=== PATIENT | male | born 1950 | race Caucasian/White ===

== ENCOUNTER 2018-02-19 19:13 | Outpatient (REF) | payer MEDICARE, SELFPAY ==
[2018-02-19 19:29] LABS: HCT 41.7 % (40.0-50.0); HGB 14.8 g/dL (13.5-17.5); Mean Corp. HGB Concentration 35.5 g/dL (32.0-36.0); Mean Corpuscular Hemoglobin 32.5 pg (27.0-33.0); Mean Corpuscular Volume 91.6 fL (80-95); Mean Platelet Volume 10.2 fL (8.0-11.0); Platelet Count 183 x1000/uL (130-400); RBC 4.55 m/cumm (4.50-6.00); RBC Distribution Width 12.2 % (11.8-14.1); White Blood Cell Count 6.21 k/cumm (4.4-10.8)
[2018-02-19 20:13] LABS: ALT 25 U/L (12-78); AST 28 U/L (15-37); Albumin 4.3 g/dL (3.4-5.0); Alkaline Phosphatase 79 U/L (46-116); Anion Gap 8.8 mmol/L (3-11); BUN 23 mg/dL (7-18); Bilirubin, Total 0.8 mg/dL (0.2-1.0); CO2 28.2 mmol/L (21.0-32.0); Calcium 9.3 mg/dL (8.5-10.1); Chloride 102 mmol/L (98-107); Glucose 93 mg/dL (70-100); Potassium 4.4 mmol/L (3.5-5.1); Sodium 139 mmol/L (136-145); Total Protein 7.3 g/dL (6.4-8.2); Vitamin B12 442 pg/mL (193-986)
== END 2018-02-19 19:33 ==
LOC: NCHCN 19:13
PROVIDERS: PCP Internal Medicine; Visit Provider Internal Medicine
DX: G47.33 Obstructive sleep apnea (adult) (pediatric) (principal); L30.9 Dermatitis, unspecified; G31.84 Mild cognitive impairment of uncertain or unknown etiology; N40.0 Benign prostatic hyperplasia without lower urinary tract symptoms
CPT/HCPCS: 80053; 85027; 82607; 84443

== ENCOUNTER 2019-02-17 12:38 | Outpatient (REF) | payer MEDICARE, OTHER, SELFPAY ==
[2019-02-17 19:39] LABS: HCT 41.5 % (40.0-50.0); HGB 14.1 g/dL (13.5-17.5); Mean Corpuscular Hemoglobin 31.4 pg (27.0-33.0); Mean Corpuscular Volume 92.4 fL (80-95); Mean Platelet Volume 9.7 fL (8.0-11.0); Platelet Count 219 x1000/uL (130-400); RBC 4.49 m/cumm (4.50-6.00); RBC Distribution Width 12.1 % (11.8-14.1); White Blood Cell Count 6.45 k/cumm (4.4-10.8)
[2019-02-17 19:58] LABS: ALT 16 U/L (16-63); AST 26 U/L (15-37); Albumin 3.9 g/dL (3.4-5.0); Alkaline Phosphatase 68 U/L (46-116); Anion Gap 6.8 mmol/L (3-11); BUN 28 mg/dL (7-18); Bilirubin, Total 0.5 mg/dL (0.2-1.0); CO2 29.2 mmol/L (21.0-32.0); CREATININE 0.91 mg/dL (0.70-1.30); Calcium 9.2 mg/dL (8.5-10.1); Chloride 105 mmol/L (98-107); Glucose 84 mg/dL (74-106); Potassium 4.6 mmol/L (3.5-5.1); Sodium 141 mmol/L (136-145); TSH 1.84 uIU/mL (0.36-3.74); Total Protein 7.1 g/dL (6.4-8.2); Vitamin B12 433 pg/mL (193-986)
== END 2019-02-17 12:58 ==
LOC: NCHCN 12:38
PROVIDERS: PCP Internal Medicine; Visit Provider Internal Medicine
DX: G31.84 Mild cognitive impairment of uncertain or unknown etiology (principal); N40.0 Benign prostatic hyperplasia without lower urinary tract symptoms; I10 Essential (primary) hypertension
CPT/HCPCS: 80053; 85027; 82607; 84443

== ENCOUNTER 2019-05-20 16:32 | Outpatient (REF) | payer MEDICARE, OTHER, SELFPAY | END 2019-05-20 16:52 | LOC: NCHCN 16:32 | PROVIDERS: PCP Internal Medicine; Visit Provider Internal Medicine | DX: N40.0 Benign prostatic hyperplasia without lower urinary tract symptoms (principal); N43.3 Hydrocele, unspecified | CPT/HCPCS: 87086 ==

== ENCOUNTER 2019-07-21 19:12 | Outpatient (REF) | payer MEDICARE, OTHER, SELFPAY ==
[2019-07-21 20:20] LABS: C-Reactive Protein 0.25 mg/dL (0.0-0.3); Creatine Kinase 120 U/L (39-308)
[2019-07-21 21:07] LABS: ESR 16 mm/hr (1-20)
== END 2019-07-21 19:32 ==
LOC: NCHCN 19:12
PROVIDERS: PCP Internal Medicine; Visit Provider Internal Medicine
DX: M12.812 Other specific arthropathies, not elsewhere classified, left shoulder (principal); M62.81 Muscle weakness (generalized); M20.40 Other hammer toe(s) (acquired), unspecified foot
CPT/HCPCS: 82550; 85652; 86140

== ENCOUNTER 2019-12-22 11:40 | Outpatient (REF) | payer MEDICARE, OTHER, SELFPAY ==
[2019-12-22 19:16] LABS: Anion Gap 7.2 mmol/L (3-11); BUN 21 mg/dL (7-18); CO2 26.8 mmol/L (21.0-32.0); CREATININE 0.83 mg/dL (0.70-1.30); Calcium 9.1 mg/dL (8.5-10.1); Chloride 106 mmol/L (98-107); Glucose 90 mg/dL (74-106); Potassium 4.6 mmol/L (3.5-5.1); Sodium 140 mmol/L (136-145)
== END 2019-12-22 12:00 ==
LOC: NCHCN 11:40
PROVIDERS: PCP Internal Medicine; Visit Provider Internal Medicine
DX: R00.2 Palpitations (principal); I10 Essential (primary) hypertension; E66.9 Obesity, unspecified
CPT/HCPCS: 80048

== ENCOUNTER → 2020-09-13 13:55 | Outpatient (BNVA) | payer MEDICARE, OTHER, SELFPAY | PROVIDERS: PCP Internal Medicine; Referring Provider Internal Medicine; Visit Provider Internal Medicine Cardiovascular Disease | DX: I48.0 Paroxysmal atrial fibrillation (principal); I35.8 Other nonrheumatic aortic valve disorders; I10 Essential (primary) hypertension; G47.33 Obstructive sleep apnea (adult) (pediatric); E66.9 Obesity, unspecified | CPT/HCPCS: 93005; 99204 ==

== ENCOUNTER → 2020-10-30 13:37 | Outpatient (BNVA) | payer MEDICARE, OTHER, SELFPAY | PROVIDERS: PCP Internal Medicine; Referring Provider Internal Medicine; Visit Provider Internal Medicine Cardiovascular Disease | DX: I48.0 Paroxysmal atrial fibrillation (principal); G47.33 Obstructive sleep apnea (adult) (pediatric); I35.8 Other nonrheumatic aortic valve disorders; I10 Essential (primary) hypertension | CPT/HCPCS: 99214; 99213 ==

== ENCOUNTER 2021-08-01 18:40 | Outpatient (REF) | payer MEDICARE, OTHER, SELFPAY ==
[2021-08-01 19:08] LABS: HCT 41.3 % (40.0-50.0); HGB 14.2 g/dL (13.5-17.5); MCH 31.3 pg (27.0-33.0); MCHC 34.4 % (32.0-36.0); MCV 91 fL (80-95); MPV 9.9 fL (8.0-11.0); Platelet Count 204 10^3/uL (130-400); RBC 4.53 10^6/uL (4.36-5.78); RDW 12.1 % (11.8-14.1); RDW-SD 40.4 fL; WBC 5.58 10^3/uL (4.4-10.8)
[2021-08-01 19:20] LABS: ALT 22 U/L (16-63); AST 18 U/L (15-37); Albumin 3.9 g/dL (3.4-5.0); Alkaline Phosphatase 88 U/L (46-116); Bilirubin, Direct 0.1 mg/dL (0.0-0.2); Bilirubin, Total 0.4 mg/dL (0.2-1.0); Lipase 140 U/L (73-393); Total Protein 7.1 g/dL (6.4-8.2)
== END 2021-08-01 18:41 | disposition home or self-care (01) ==
LOC: NCHCN 18:40
PROVIDERS: PCP Internal Medicine; Visit Provider Internal Medicine
DX: R10.13 Epigastric pain (principal)
CPT/HCPCS: 80076; 83690; 85027

== ENCOUNTER 2021-09-17 18:38 | Outpatient (REF) | payer MEDICARE, OTHER, SELFPAY ==
[2021-09-17 20:18] LABS: Bilirubin Negative (Negative); Blood Negative (Negative); Clarity Clear (Clear); Glucose Negative (Negative); Ketones Negative (Negative); Leukocyte Esterase Negative (Negative); Nitrite Negative (Negative); Specific Gravity >= 1.030 (1.005-1.025); Urobilinogen 0.2 EU/dL (Up TO 0.2); pH 5.5 (5-8)
[2021-09-17 20:30] LABS: COMMENT (LAB VIEW ONLY) 126.91 mg/dL; Microalb ug/mg Crea 5.6 ug/mg Cr
== END 2021-09-17 18:39 | disposition home or self-care (01) ==
LOC: NCHCN 18:38
PROVIDERS: PCP Internal Medicine; Visit Provider Internal Medicine
DX: R35.0 Frequency of micturition (principal); N40.0 Benign prostatic hyperplasia without lower urinary tract symptoms
CPT/HCPCS: 81003; 82043; 82570

== ENCOUNTER 2022-10-09 18:07 | Outpatient (REF) | payer MEDICARE, OTHER, SELFPAY ==
[2022-10-09 19:05] LABS: Anion Gap 8.2 mmol/L (3-11); BUN 27 mg/dL (7-18); CO2 25.8 mmol/L (21.0-32.0); CREATININE 1.2 mg/dL (0.70-1.30); Calcium 9.5 mg/dL (8.5-10.1); Chloride 106 mmol/L (98-107); Estimated GFR 64.65 (mL/min/1.73m2); Glucose 102 mg/dL (74-106); Potassium 4.9 mmol/L (3.5-5.1); Sodium 140 mmol/L (136-145)
== END 2022-10-09 18:08 | disposition home or self-care (01) ==
LOC: NCHCN 18:07
PROVIDERS: PCP Internal Medicine; Visit Provider Nurse Practitioner Family
DX: I10 Essential (primary) hypertension (principal); I83.018 Varicose veins of right lower extremity with ulcer other part of lower leg
CPT/HCPCS: 80048; 87077; 87070; 87186; 87205

== ENCOUNTER 2022-12-22 16:13 | Outpatient (REF) | payer MEDICARE, OTHER, SELFPAY ==
[2022-12-22 19:59] LABS: HGB 13.4 g/dL (13.5-17.5); MCH 31.1 pg (27.0-33.0); MCHC 34.4 % (32.0-36.0); MCV 91 fL (80-95); MPV 9.8 fL (8.0-11.0); Platelet Count 237 10^3/uL (130-400); RBC 4.31 10^6/uL (4.36-5.78); RDW-SD 39.8 fL; WBC 5.92 10^3/uL (4.4-10.8)
== END 2022-12-22 16:14 | disposition home or self-care (01) ==
LOC: NCHCN 16:13
PROVIDERS: PCP Internal Medicine; Visit Provider Nurse Practitioner Family
DX: R50.9 Fever, unspecified (principal)
CPT/HCPCS: 85027

== ENCOUNTER 2023-03-26 13:34 | Outpatient (CLI) | payer MEDICARE, OTHER, SELFPAY ==
--- NOTE | 2023-03-26 08:30 | DI.RAD_ITS ---
Exam(s) XR HIP RT COMPLETE AP PELVIS EXAM: XR HIP RT COMPLETE AP PELVIS CLINICAL HISTORY: right hip pain. TECHNIQUE: 2D digital imaging was performed of the right hip. Two images were obtained. AP pelvis a nd lateral right hip views were obtained. COMPARISON: No exams were available for comparison FINDINGS: BONES: No acute fracture is present. No bony destructive lesion is seen. JOINTS: No dislocation present. There is loss of the superior joint space in the right hip. Subchond ral cysts are seen in both the right superior acetabulum and the superior aspect of the right femoral head. Mild subchondral sclerosis is also seen in the right hip. The left hip is well maintained. SOFT TISSUE: Dystrophic calcification is seen adjacent to the right hip. IMPRESSION: Marked degenerative changes of the right hip. DATA REPOSITORY: RADIATION DOSE DELIVERED:
== END 2023-03-26 13:35 | disposition home or self-care (01) ==
LOC: DIORS 13:35
PROVIDERS: PCP Internal Medicine; Referring Provider Internal Medicine; Visit Provider Student in an Organized Health Care Education/Training Program
DX: M16.11 Unilateral primary osteoarthritis, right hip (principal)
CPT/HCPCS: 99214; 73502

== ENCOUNTER 2023-04-20 04:51 | Outpatient (CLI) | payer MEDICARE, OTHER, SELFPAY ==
[2023-04-20 12:04] LABS: HCT 40.8 % (40.0-50.0); MCH 30.7 pg (27.0-33.0); MCHC 34.3 % (32.0-36.0); MCV 90 fL (80-95); MPV 9.1 fL (8.0-11.0); Platelet Count 205 10^3/uL (130-400); RBC 4.56 10^6/uL (4.36-5.78); RDW 11.9 % (11.8-14.1); RDW-SD 39.2 fL; WBC 7.01 10^3/uL (4.4-10.8)
[2023-04-20 12:30] LABS: Anion Gap 11.4 mmol/L (3-11); BUN 25 mg/dL (7-18); CO2 25.6 mmol/L (21.0-32.0); Chloride 104 mmol/L (98-107); Estimated GFR 79.97 (mL/min/1.73m2); Glucose 95 mg/dL (74-106); Potassium 4.4 mmol/L (3.5-5.1); Sodium 141 mmol/L (136-145)
== END 2023-04-20 04:52 | disposition home or self-care (01) ==
LOC: LBO 04:51
PROVIDERS: PCP Internal Medicine; Visit Provider Student in an Organized Health Care Education/Training Program
DX: Z01.818 Encounter for other preprocedural examination
CPT/HCPCS: 36415; 80048; 85027

== ENCOUNTER 2023-05-05 06:09 | Day surgery (SDC) | payer MEDICARE, OTHER, SELFPAY ==
[2023-05-05] VITALS (9 sets, daily range): BP systolic 103–142; BP diastolic 54–78; PULSE 56–68; RESP 12–17; TEMP 36.4–36.5; O2SAT 96–98; BMI 33.5
--- NOTE | 2023-05-05 06:19 | W.ANESPRE ---
General Info Date of Service Date Performed: 05/05/23 Height: 5 ft 8 in Weight: 100.244 kg Body Mass Index (BMI): 33.5 Surgical Procedure: Operation Date: 05/05/23 07:50 Proposed Procedure Side Surgeon p Hip Total Hip Anterior Right Harrison Neal MD Meds Allergies and Home Medications Allergies Allergy/AdvReac Type Severity Reaction Status Date / Time lisinopril AdvReac Intermediate cough Verified 05/05/23 06:26 Home Medication Medication Instructions Recorded cholecalciferol (vitamin D3) 125 125 mcg PO DAILY 10/31/22 mcg (5,000 unit) tablet vit C 250 mg-vit E 90 mg-zinc 40 2 tab PO DAILY 10/31/22 mg-copper 1 sb-iapfpy-nnonit capsule (PreserVision AREDS-2) apixaban 5 mg tablet (Eliquis) 5 mg PO BID 02/17/23 cetirizine 10 mg tablet 10 mg PO DAILY PRN 03/26/23 furosemide 20 mg tablet (Lasix) 10 mg PO DAILY 03/26/23 mirabegron 50 mg tablet,extended 50 mg PO DAILY 03/26/23 release 24 hr (Myrbetriq) acetaminophen 500 mg tablet 1,000 mg (2 x 500 mg) PO TID #90 05/05/23 tabs celecoxib 200 mg capsule 200 mg PO BID #60 caps 05/05/23 dexamethasone 4 mg tablet 4 mg PO DAILY #2 tabs 05/05/23 diltiazem HCl 180 mg capsule,24 180 mg PO DAILY 05/05/23 hr,extended release (Tiadylt ER) oxycodone 5 mg tablet 5 mg PO Q4H PRN pain #20 tabs 05/05/23 pantoprazole 40 mg tablet,delayed 40 mg PO DAILY #30 tabs 05/05/23 release Current Visit Medications: Current Medications Generic Name Dose Route Start Last Admin Trade Name Freq PRN Reason Stop Dose Admin Acetaminophen 1,000 mg 05/05/23 06:00 Acetaminophen 500 Mg Tab PO 06/04/23 05:59 PREOP DUNCAN Celecoxib 400 mg 05/05/23 06:00 Celecoxib 200 Mg Cap PO 06/04/23 05:59 PREOP DUNCAN Tranexamic Acid 1,000 mg/ 60 mls @ 360 mls/hr 05/05/23 06:00 Sodium Chloride IV 06/04/23 05:59 PREOP DUNCAN Ringer's Solution 1,000 mls @ 80 mls/hr 05/05/23 06:00 IV 06/03/23 23:59 INFUSION DUNCAN Cefazolin Sodium/Dextrose 2 gm in 50 mls @ 100 mls/hr 05/05/23 06:00 Ancef Duplex IVPB 05/05/23 16:00 PREOP DUNCAN IV Miscellaneous Supplies 1 each 05/05/23 06:00 Iv Access IV 06/03/23 23:59 DIRECTED DUNCAN Sodium Chloride 0 ml 05/05/23 06:00 Normal Saline Flush 10 Ml Syr IV 06/03/23 23:59 PRN PRN Sodium Chloride 0 ml 05/05/23 06:00 Normal Saline 10 Ml Vial IJ 06/03/23 23:59 DIRECTED PRN Sterile Water 0 ml 05/05/23 06:00 Water,Injection,Sterile 10 Ml Vial IJ 06/03/23 23:59 DIRECTED PRN PFSH Active Problems Active Problems: Problem Status Onset Code Degenerative joint disease of right hip M16.11 Obstructive sleep apnea (adult) (pediatric) G47.33 GRACIELA (obstructive sleep apnea) G47.33 HTN, goal to be determined I10 Obesity, unspecified E66.9 Gastro-esophageal reflux disease without esophagitis K21.9 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 I51.7 Benign prostatic hyperplasia without lower urinary tract symptoms N40.0 Mild cognitive impairment, so stated G31.84 Chronic depressive disorder F32.9 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 Venous insufficiency (chronic) (peripheral) I87.2 Paroxysmal atrial fibrillation I48.0 Medical History Medical History (Updated 05/01/23 @ 11:58 by Charly Ohara) A-fib Adhesive capsulitis Esophageal reflux Colonic diverticulum PVC (premature ventricular contraction) LVH (left ventricular hypertrophy) Hand dermatitis BPH (benign prostatic hyperplasia) Urinary frequency Hydrocele, right Hammer toe Onychomycosis Irregular heart beats Arthritis of knee, right Actinic keratosis Epigastric abdominal pain Inguinal hernia Cholelithiases Acute nontraumatic kidney injury Venous stasis ulcer Right ear pain Surgical History Surgical History (Updated 05/01/23 @ 11:58 by Charly Ohara) H/O cardiac radiofrequency ablation 04/15/21 H/O vasectomy History of open reduction and internal fixation (ORIF) procedure s/p 2 ORIF of patella s/p right TKA Tobacco Smoking/Tobacco Use Status: Never Alcohol Alcohol Intake: current Alcohol intake frequency: holidays/special occasions only Substance Use Substance use: Never Substance use type: does not use Vital Signs and Lab Results Lab Results Blood Type / Crossmatch: No Data to Display Complete Blood Count: White Blood Count 7.01 10^3/uL (4.4-10.8) 04/20/23 11:55 Red Blood Count 4.56 10^6/uL (4.36-5.78) 04/20/23 11:55 Hemoglobin 14.0 g/dL (13.5-17.5) 04/20/23 11:55 Hematocrit 40.8 % (40.0-50.0) 04/20/23 11:55 Platelet Count 205 10^3/uL (130-400) 04/20/23 11:55 Complete Metabolic Panel: Sodium 141 mmol/L (136-145) 04/20/23 11:55 Potassium 4.4 mmol/L (3.5-5.1) 04/20/23 11:55 Chloride 104 mmol/L (98-107) 04/20/23 11:55 Carbon Dioxide 25.6 mmol/L (21.0-32.0) 04/20/23 11:55 BUN 25 mg/dL (7-18) H 04/20/23 11:55 Creatinine 1.0 mg/dL (0.70-1.30) 04/20/23 11:55 Est GFR (CKD-EPI 2020) 79.97 (mL/min/1.73m2) 04/20/23 11:55 Calcium 10.0 mg/dL (8.5-10.1) 04/20/23 11:55 Glucose 95 mg/dL (74-106) 04/20/23 11:55 Liver Function Panel: No Data to Display Coagulation Panel: No Data to Display Cardiac Panel: No Data to Display Arterial Blood Gas: No Data to Display Venous Blood Gas: No Data to Display Pancreas Panel: No Data to Display Thyroid Panel: No Data to Display Infectious Disease: No Data to Display Blood Cultures: No Data to Display Toxicology Panel: No Data to Display Imaging and Studies Imaging and Studies Study information below may be from another EMR and interpreted by another provider. Please see original notes in EMR for more complete details. EKG Summary: 2020 Conclusion Sinus rhythm...normal P axis, V-rate 50- 99 Left anterior fascicular block...axis(240,-40), init forces inf Consider anterior infarct...Q >30mS in V2-V5 Baseline wander in lead(s) V1,V3,V4,V5,V6 Other Study Summary:: echo 2020 EF 65%, no significant valve disease, no aortic stenosis Anesthesia Assessment and Plan Anesthesia History Personal History: No History of Anesthesia Complications Family History: No Family History of Anesthesia Complications Exercise Tolerance Exercise Tolerance: Metabolic Equivalents>4 Pertinent Negatives Pertinent Negatives: No Symptoms of GERD, No Major Cardiovascular Symptoms or Complaints, No Major Pulmonary Symptoms or Complaints and No History of CVA/TIA Cardiac & Pulmonary Exam Cardiac Exam: Normal S1/S2 Heart Sounds Pulmonary Exam: Clear Bilateral Breath Sounds Implantable Cardiac Device Does patient have a Pacemaker or an ICD?: No Airway Exam Known Difficult Airway: No Mallampati Class: 3 Mouth Opening: Normal (> 3cm) Thyromental Distance: Greater than 3 cm Neck Range of Motion: Full ROM Neck Circumference: Normal Teeth Condition: Loose or Chipped (one chipped right side, nothing loose) ASA Classification ASA Score: ASA 2 Emergency Case?: No NPO Status NPO Status: NPO Clears >2 hours, Solids >8 hours Anesthesia Plan Resuscitation Status: Full Code Anesthesia Technique: Spinal Anesthesia Airway Planned: Natural Airway Monitors Used: Standard Monitors
[2023-05-05] MEDS: Acetaminophen 500 MG TAB 1000 MG PO (07:06)
[2023-05-05] MEDS: Lactated Ringers 1,000 ML 80 ML IV (07:06)
[2023-05-05] MEDS: Celecoxib 200 MG CAP 400 MG PO (07:06)
--- NOTE | 2023-05-05 07:10 | W.PM.DSUDISC ---
Date of service: 05/05/23 Time of Service: 07:10 Discharge Plan Disposition Patient Disposition: Home Condition: Good Discharge Details Reason For Visit: R THR Attending Provider: Harrison Neal Primary Care Provider: Glen Jason Home Meds and New Rx's Prescriptions: New celecoxib 200 mg capsule 200 mg PO BID Qty: 60 0RF acetaminophen 500 mg tablet 1,000 mg PO TID Qty: 90 3RF pantoprazole 40 mg tablet,delayed release (DR/EC) 40 mg PO DAILY Qty: 30 0RF dexamethasone 4 mg tablet 4 mg PO DAILY Qty: 2 0RF oxycodone 5 mg tablet 5 mg PO Q4H MDD 6 tabs PRN (Reason: pain) Qty: 20 0RF Continued furosemide [Lasix] 20 mg tablet 10 mg PO DAILY Myrbetriq 50 mg tablet extended release 24 hr 50 mg PO DAILY cetirizine 10 mg tablet 10 mg PO DAILY PRN diltiazem HCl 180 mg capsule,extended release 24 hr 180 mg PO DAILY cholecalciferol (vitamin D3) 125 mcg (5,000 unit) tablet 125 mcg PO DAILY PreserVision AREDS-2 250-90-40-1 mg capsule 2 tab PO DAILY Eliquis 5 mg tablet 5 mg PO BID Discontinued acetaminophen 500 mg capsule 500 mg PO Q6H PRN Discharge Instructions Additional Instructions: Total Hip Discharge Instructions Activity: The most important activity is to walk. You should try to take short walks a few times a day. You have no restrictions on movement or positioning, but do not try to force what you do. You will find some stiffness and weakness with hip flexion (lifting your knee). Do not try to strengthen this too early, continue to practice walking and stairs and this will come. - Outpatient physical therapy can be helpful to help return you to a normal gait and improve your flexibility and strength. This can start around 2 weeks. For some patients, it?s not necessary. Usually this is determined at the time of discharge or at the first post-operative visit. - You should wear the ANGLE hose on both legs for 2 weeks. Dressing: Keep the surgical dressing in place for at least one week. After the first week it may be removed and replace with light gauze and tape or nothing. It may get wet after 3 days but avoid soaking the dressing. If it gets wet, just lightly pat dry. It is important to always keep some gauze between skin folds, especially when you are sitting. Spend some time with the wound exposed when you are lying flat as the incision does wrinkle onto itself. Medications: - You should take Tylenol and an anti-inflammatory Celebrex as your primary pain control medications. If the Celebrex is too expensive or not covered, please call the office for another alternative (Advil/Ibuprofen or Naproxen/Aleve). - You have been prescribed a stronger pain medication Oxycodone for breakthrough pain, take as needed as prescribed. - You have also been prescribed a stomach acid reduction agent Pantoprozole to help reduce stomach acid and reflux. - You have also been prescribed Decadron to help with post-operative nausea and pain. You will take this for two days starting tomorrow. - You will be taking your apixaban for DVT prevention unless instructed otherwise. - If you have constipation you should take Colace or Miralax (both [id number]). It takes most people 3-4 days to have a bowel movement. Follow-up: 2 weeks If you have any acute concerns or questions, please do not hesitate to contact the office at [phone]. You may contact Dr. Neal with any questions after hours through the hospital at [phone] or on his cell phone at [phone]. Referrals: Harrison Neal MD [ [facility] STAFF PHYSICIAN] - Equipment/Supplies: Walker Activity:: Activity as Tolerated Diet:: As Tolerated
[2023-05-05] MEDS: ceFAZolin 2 GM/50 ML BAG IVPB (07:34)
--- NOTE | 2023-05-05 08:50 | DI.RAD_ITS ---
Exam(s) XR HIP RT IN OR EXAM: XR HIP RT IN OR CLINICAL HISTORY: Degenerative joint disease of right hip TECHNIQUE: 2D and realtime digital imaging was performed. CONTRAST MATERIAL: Refer to procedure report. COMPARISON: CR XR HIP RT COMPLETE AP PELVIS from 03/26/2023 FINDINGS: Fluoroscopy was provided for Dr. Neal during the performance of a right total hip replacement. Please refer to the procedure report for complete details. Ka,r=5.82 mGy IMPRESSION: RADIATION DOSE DELIVERED: 0.0 2558.6 0
--- NOTE | 2023-05-05 09:01 | ROE_ITS ---
Date of service: 05/05/23 Time of Service: 07:45 Operative Note Operative Note DATE OF PROCEDURE: 05/05/23 PRE-OP DIAGNOSIS: Right Hip Osteoarthritis POST-OP DIAGNOSIS: same PROCEDURE: Right Anterior Total Hip Arthroplasty with Intraoperative Navigation SURGEON: Harrison Neal PLASMA PROCESSING TECHNICIAN: Eric Thompson ANESTHESIA TYPE: Spinal Refer to Anesthesia Record ESTIMATED BLOOD LOSS: 250 PATHOLOGY: none sent TOURNIQUET TIME: 0 COMPLICATIONS: None Patient was transported to: PACU Patient's condition: stable Implants: 1. Depuy Lockport Acetabular Component, 54mm 2. Depuy Acetabular Liner, [id number] 3. Depuy Actis High Offset Collared Femoral Stem, Size 6 4. Depuy Altrx Ceramic Femoral Head, Size 36+1.5mm Indications: I have seen Dr. Tierney in clinic for symptoms of hip arthritis, confirmed with radiographic findings. He has exhausted nonoperative methods and was having significant limitations in daily function and desired better function and less pain. I discussed the technical details of a hip replacement. I explained the risks of the procedure to include, but not limited to, bleeding, infection, pain, stiffness, fracture, damage to nerves and vessels, damage to muscles and tendons, loosening, instability, leg length inequality, need for repeat procedure, blood clot and cardiopulmonary demise. Despite these risks, he elected to proceed. Findings: There was significant signs of arthritis throughout the hip with complete loss of cartilage of the femoral head, deformity and large floor osteophyte. Procedure Description: Dr. Tierney was greeted in the preoperative holding area where the correct side was identified and marked. The consent was reviewed with the patient and signed. The history and physical was updated. All questions were answered. He was taken back to the operating room. A spinal anesthestic was then administered. The feet were wrapped with cast padding and Coban and then placed into the boot liners and then into the boots. Care was taken to protect the skin and make sure the heels were fully down and the boots were stable. The patient was then positioned onto the HANA table. Both legs were held in a neutral position. SCDs were applied. The patient was then slid down onto a peroneal post. Prophylactic antibiotics in the form of Cefazolin were administered. 1g of Tranxemic Acid was given intravenously within 30 minutes of incision. The right leg was then prepped with Chloraprep and draped in a standard fashion. A second prep with Chloraprep was performed prior to placement of a shower-curtain type drape with Iodine impregnated skin protection. A timeout to confirm correct identity, side and site, procedure, allergies, anesthesia, and medical concerns was performed. An obliquely oriented incision was made starting lateral to the ASIS and running distal over the Tensor Fascia Lis (TFL) muscle belly toward the fibular head, approximately 10cm. The skin and soft tissue was dissected sharply, through Alexandro?s fascia, and to the fascia of the TFL. With the fascia and superior border of the IT band identified, the fascia was incised with a new knife just above any perforators from the IT band. The TFL muscle belly was bluntly dissected away from the fascia and moved laterally. The fat between TFL and rectus was identified to ensure the dissection was not within the TFL. Blunt dissection created space between abductors and the capsule and retractor was placed over the lateral femoral neck. The fibers of the rectus femoris tendon were identified and these were freed from the anterior capsule. A second cobra retractor was placed around the medial femoral neck. The TFL was further retracted laterally to show the deep fascia. Careful dissection through this layer identified three main crossing vessels of the lateral femoral circumflex. These were cauterized in multiple locations and then cut without any noticeable bleeding. The TFL was further released bluntly from the deep fascia to expose anterior hip capsule and fat The Michael orthopaedic retractor was then placed beneath the TFL and against sartorius and medial soft tissues to protect and retract the soft tissues. A T-capsulotomy was then performed starting at the superior lateral acetabulum and moving distally to the intertrochanteric ridge. These capsular flaps were tagged with a No. 1 Ethibond and elevated from within. The capsular flaps were released to the shoulder of the lateral neck and to the lesser trochanter to give excellent visualization of the proximal femur. A neck osteotomy was performed using an oscillating saw based on preoperative templates. This cut started in the shoulder and of the lateral neck and exited medially. The saw was at all times directed medially to avoid injury to the greater trochanter. Gross traction was applied to the leg and the osteotomy opened. The femoral head was removed with a corkscrew, making sure to protect the TFL on its exit. Traction was released after head removal. This was measured on the back table to determine the starting reamer size. Portions of the rectus obscuring visualization were minimally elevated off the superior acetabulum. An anterior retractor was placed over the anterior wall between capsule and labrum and attached to the Gripper retraction system. The femur was rotated to 90 degrees and medial capsule was fully released until the lesser trochanter was palpable and visible; the femur was returned to 30 degrees. A posterior retractor was placed similarly between capsule and labrum. This prov ided excellent visualization. The contents of the cotyloid fossa were removed with electrocautery and the labrum was removed with a knife. There was a notable floor osteophyte. There was significant chondromalacia of the superior acetabulum. Acetabular reaming began with a 46mm reamer. This first reaming was directed anterior to posterior and medial to get down to the true floor. This was inspected and reamed until the true floor was reached. The anterior retractor was then released and entry and exit was provided by traction on the capsular flaps. I then reamed sequentially up to a 54mm reamer where good fit was obtained. The larger reamers were oriented based on anatomical reference of the anterior and lateral skaggs to ensure proper abduction and anteversion. Positioning and size was confirmed with the fluoroscopy. A 54mm Depuy [place] acetabular component was selected. The acetabulum was reamed around the periphery with the selected acetabular size to prevent a rim fit. The deep tissues were irrigated. The acetabular component was then impacted in a position of about 40-45 degrees of abduction and 15-20 degrees of anteversion, using the patient?s anatomy as the ultimate landmark. Fluoroscopy was used to confirm this. There was excellent motor and generator assembler of the acetabular component and the inserting handle was removed. The acetabular liner, Depuy [id number] polyethylene liner, was inserted and lined up with the tines of the acetabular component. There was no soft tissue interposition. The liner was then impacted into position and confirmed to be well-seated. A portion of the geovany-articular cocktail was then injected around the acetabulum into the capsule and periosteum. This cocktail consisted of 123mg of Ropivacaine, 0.25mg of Epinephrine, 0.04mg of Clonidine, and 15mg of Ketorolac, diluted to 50cc. The leg was rotated to 120 degrees. Any remaining medial capsule was released until the lesser trochanter was easily palpable. A retractor was placed m edially. The lateral capsule was further released into the shoulder to allow access to the greater trochanter. A Chaidez retractor was placed over the greater trochanter which allowed the trochanter to flip in front of the capsule for excellent exposure. The leg was brought down into maximal extension and 20 degrees of adduction while ensuring there was no impingement on the acetabulum. Any remnant capsule within the trochanter was released. Piriformis and obturator externis were identified and protected. There was excellent access to the proximal femur. The lateral neck remnant was removed with a rongeur. A blunt canal probe was used to identify the canal and trajectory for later broaching. A box osteotome initiated the broach course. A small curved rasp and a curved curette were used to work laterally. Broaching then began with a starter Actis broach. This was inserted manually around the trochanter and into the canal before mallet blows. The broach was seated to a few millimeters below the cut level based on the neck cut and the preoperative template. Sequential broaching was continued with the Corsairse pneumatic broaching device until a tight fit was obtained with good rotational control of the femur. A trial standard neck was inserted along with a +5 trial head. The leg was brought out of extension and adduction and then reduced with traction and internal rotation. The leg was stable anteriorly in a position of 30 degrees of extension and 90 degrees of external rotation. Fluoroscopy was used to ensure there was no fracture and the stem was seated well. Leg lengths were checked with an AP pelvis and pelvic reference points. Guaranteach navigation system was used to confirm appropriate positioning and leg length and offset. This over-crrected the leg length and under-corrected the offset, so going to a high offset stem with a +1.5 was chosen. Once content with the desired offset and leg lengths, the leg was brought back into extension, quality control coordinator al rotation and adduction. The periosteum and surrounding tissue was injected with remaining portion of the geovany-articular cocktail. The proximal femur was irrigated as well as the deep tissues. The Depuy Actis High Offset collared stem, size 6, was then manually inserted into the proximal femur making sure to control rotation. It was then malleted into position with light blows, giving breaks to allow bone expansion and decrease risk of fracture. The selected Depuy Altrx Ceramic Head, size 36+1.5mm, was then placed onto the clean and dry trunnion and secured with impaction onto the tapered fit. The leg was brought back out of extension and adduction and reduced with traction and internal rotation. Stability was confirmed with no shuck at 90 degrees of external rotation and 30 degrees of extension. No impingement through range of motion arc. Final x-ray images were obtained with fluoroscopy to confirm adequate positioning and no intraoperative fracture. The deep tissues were thoroughly irrigated with Surgiphor, betadine solution. This was allowed to sit in the wound for 3 minutes before being thoroughly irrigated out with normal saline. The capsule was then reapproximated with the previously placed Ethibond sutures. The TFL fascia was finally closed with a No. 2 Stratafix, barbed suture. Deep tissues were then reapproximated with 0 Vicryl and a running 2-0 Vicryl. The skin was closed with a running 4-0 Monocryl in a subcuticular fashion. This was reinforced with skin glue. A Mepilex silver dressing was applied. At the end of the case, all counts were correct. He was transferred to the hospital bed without difficulty and suffering no apparent complication. Dr. Tierney has a good prognosis. Physical therapy will start today and without restrictions, weight-bearing as tolerated. His home dose of Apixaban 5mg BID will be used for DVT prophylaxis.
[2023-05-05] MEDS: fentaNYL 100 MCG/2 ML VIAL IVP ×3 (09:35→09:53)
[2023-05-05] MEDS: oxyCODONE 5 MG TAB PO (10:35)
--- NOTE | 2023-05-05 11:05 | PT.INIE ---
PT Notes Visit Reasons: R THR Physical Therapy Day Surgery Initial Evaluation Date: 05/05/2023 Referring Doctor: NETTIE Ji PT Orders: PT CONSULT: S/P Ortho Srugery Precautions: WBAT on the R LE with AD. Patient Profile/Admitting Diagnosis: Glen is a 72-year-old male with degenerative joint disease of the right hip and status post right anterior total hip arthroplasty on postoperative day 0. PMHX: Medical History (Updated 03/26/23 @ 08:44 by Dee Tyalor) Adhesive capsulitis Esophageal reflux Colonic diverticulum PVC (premature ventricular contraction) LVH (left ventricular hypertrophy) Hand dermatitis BPH (benign prostatic hyperplasia) Urinary frequency Hydrocele, right Hammer toe Onychomycosis Irregular heart beats Arthritis of knee, right Actinic keratosis Epigastric abdominal pain Inguinal hernia Cholelithiases Acute nontraumatic kidney injury Venous stasis ulcer Right ear pain Surgical History (Updated 03/26/23 @ 08:44 by Dee Taylor) H/O vasectomy History of open reduction and internal fixation (ORIF) procedure s/p 2 ORIF of patella s/p right TKA Social History/Home Situation: Lives with Christy in a [place] home with 14 steps to enter with a rail on one side and a wall on the other side. Independent with all aspects of ADLs prior to surgery although had been having increasing difficulty with mobility performance due to worsening arthritis. 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 Equipment Owned/DME: None Subjective: Reported 3-4/10 in the R hip that minimally limited ability to perform mobility tasks. Denied headache, chest pain, and lightheadedness throughout session. and patient stated that patient is walking a lot better right now than he did prior to surgery. Objective: General Observation: Mepilex Ag over surgical incision. TEDS to be legs. Mental Status: A&O x 4 Pain: As above ROM: Right Lower Extremity: Hip flexion WFL. Hip abduction WFL. Knee flexion WFL. Ankle dorsiflexion WFL. Ankle plantarflexion WFL. Left Lower Extremity: Hip flexion WFL. Hip abduction WFL. Knee flexion WFL. Ankle dorsiflexion WFL. Ankle plantarflexion WFL. Strength: Right Lower Extremity: Hip flexors 4-/5. Hip abductors 4-/5. Knee flexors 5/5. Knee extensors 4-/5. Ankle dorsiflexors 5/5. Ankle plantarflexors 5/5. Left Lower Extremity:Hip flexors 5/5. Hip abductors 5/5. Knee flexors 5/5. Knee extensors 5/5. Ankle dorsiflexors 5/5. Ankle plantarflexors 5/5. Sensation: Intact as to pain and light pressure in BLE Bed Mobility/Transfers: Minimal cueing provided for use of B hands as needed for support, movement sequence, AD management, and posture to reduce fall risk and minimize pain report Supine to sit standby assist Sit to stand contact-guard assist Stand to sit standby assist Bed to chair standby assist Gait: Facilitated safe and correct performance of level surface ambulation covering a distance of 150 feet using step-to gait pattern using front wheel walker and standby assist only, minimal verbal cues provided for limb advancement, AD management, and posture to reduce fall risk and minimize pain report. Stairs: Guided patient with safe and correct negotiation of 6 x 4 inch steps and 4 x 6 inch steps holding onto bilateral rails with step to gait pattern requiring contact-guard assist and minimal verbal cueing for correct technique and posture to reduce fall risk and minimize pain report. Balance: Static Sitting: Normal Dynamic Sitting: Normal Static Standing: Fair Dynamic Standing: Fair Special Tests: Mobility Limitations Standardized Measure [facility] 6 clicks Basic Mobility Inpatient Short Form: Raw Score: 22 CMS Score: 21% deficit Informed Consent/Education: Patient instructed in purpose of PT consult. Packet containing PILY exercise protocol has been given to patient. Education and training on initial set of exercises that can be done at home have been completed with patient. Trained patient with correct performance of exercises below to maximize motor control, joint flexibility, soft tissue extensibility of the [] hip musculature to facilitate return to independent functional mobility performance. Access Code: [email or web address] URL: [email or web address] Date: 05/05/2023 Prepared by: So Bustamante Exercises - Gluteal Sets - 1 x daily - 7 x weekly - 1 sets - 10 reps - 5 hold - Supine Heel Slide - 1 x daily - 7 x weekly - 1 sets - 10 reps - 5 hold - Supine Ankle Pumps - 1 x daily - 7 x weekly - 1 sets - 10 reps - 5 hold - Seated March - 1 x daily - 7 x weekly - 1 sets - 10 reps - 5 hold - Seated Long Arc Quad - 1 x daily - 7 x weekly - 1 sets - 10 reps - 5 hold Assessment: Patient requires use of a front wheel walker for all mobility ADL performance to maximize independence and reduce fall risk. Patient presents with clinical signs and symptoms consistent with current/admitting diagnoses that have resulted to mobility limitations, gait instability, generalized weakness, and impairment of motor control as demonstrated by the following impairment level findings: 1. Decreased strength to right hip major muscle groups 2. Impaired standing balance Impairments are contributing to the following functional limitations: 1. Inability to safely ambulate without assistive device 2. Increase completion time for mobility ADL performance 3. Increased fall risk Patient is assessed as a 71209 moderate complexity based on the following: History: 72-year-old male patient with history with impairment level findings, functional limitations, and past medical history as indicated above Examination: Demonstrable impairment in strength, balance, and mobility level with underlying impairments and functional limitations as documented above Presentation: Evolving for the hospital 8 0 yeah you are calling the inpatient PT but I know the fax number to the outpatient clinic yes [phone] Decision Making: Evolving Goals: N/A. PT evaluation and 1-2 treatment sessions only for functional mobility training using recommended AD and for HEP instruction. Plan of Care/Treatment Plan: N/A. PT evaluation and 1-2 treatment session only for functional mobility training using recommended AD and for HEP instruction. DISCHARGE RECOMMENDATIONS: Home when medically cleared by orthopedic surgeon. Recommend outpatient PT services in order to optimize functional mobility outcomes and facilitate return to independent community ambulation without an assistive device. TREATMENT CODE/TIME: 9716 2 x 20 minutes for 1 unit, 9753 0 x 30 minutes for 2 units (11:05-11:55) Thank you for the opportunity to participate in the care of this patient. Please sign an return this page within 30 days if you agree with the above POC. Thank you! Physician Signature Date [facility] Thank you for the opportunity to participate in the care of this patient. So Bustamante PT, DPT, CLT [facility] [place], [place]
--- NOTE | 2023-05-05 12:35 | W.ANESPOSTOP ---
Postoperative Evaluation Date, Time and Location Date Performed: 05/05/23 Time Performed: 12:36 Patient Location: Day Surgery Unit Vital Signs Most Recent Imported Vital Signs: Most Recent Vital Signs Temp Pulse Resp BP Pulse Ox 36.4 C L 59 L 16 110/67 97 05/05/23 10:37 05/05/23 10:37 05/05/23 10:37 05/05/23 10:37 05/05/23 10:37 Pain Score Most Recent Pain Score: Most Recent Pain Score Pain Level 5 05/05/23 10:37 Assessment Mental Status: Awake (Alert & Oriented to Patient Baseline) Airway and Respiratory Function: Patent airway with normal (patient baseline) respiratory exam Cardiovascular Function: Hemodynamically Stable Hydration Status: Adequately Hydrated Nausea & Vomiting: No Nausea or Vomiting Pain: Pain is tolerable per patient Peripheral Nerve Block: Patient did not receive a nerve block
== END 2023-05-05 12:51 | disposition home or self-care (01) ==
PROVIDERS: PCP Internal Medicine; Visit Provider Student in an Organized Health Care Education/Training Program
PROC: (CPT 27130; principal; 2023-05-05 07:30)
DX: M16.11 Unilateral primary osteoarthritis, right hip (principal); I48.0 Paroxysmal atrial fibrillation; G47.33 Obstructive sleep apnea (adult) (pediatric); K21.9 Gastro-esophageal reflux disease without esophagitis
CPT/HCPCS: 20985; 27130; C1776; 97162; 97530; 73501; J0690; J1100; J2001; J2250; J2371; J2401; J2405; J2704; J3010

== ENCOUNTER 2023-05-18 15:19 | Outpatient (CLI) | payer MEDICARE, OTHER, SELFPAY ==
--- NOTE | 2023-05-18 10:00 | DI.RAD_ITS ---
Exam(s) XR HIP RT COMPLETE AP PELVIS EXAM: XR HIP RT COMPLETE AP PELVIS CLINICAL HISTORY: 1ST POST OP S/P R PILY. TECHNIQUE: 2D digital imaging was performed. Two views COMPARISON: CR XR HIP RT COMPLETE AP PELVIS from 03/26/2023 XA XR HIP RT IN OR from 05/05/2023 FINDINGS: BONES: No acute fracture is present. No bony destructive lesion is seen. JOINTS: No dislocation present. There has been no change in the alignment of the right hip prosthes is. The left hip joint space is maintained. SOFT TISSUE: Vasectomy clips. IMPRESSION: Stable right hip prosthesis. DATA REPOSITORY: RADIATION DOSE DELIVERED:
== END 2023-05-18 15:20 | disposition home or self-care (01) ==
LOC: DIORS 15:19
PROVIDERS: PCP Internal Medicine; Referring Provider Internal Medicine; Visit Provider Student in an Organized Health Care Education/Training Program
DX: Z96.641 Presence of right artificial hip joint (principal); Z47.1 Aftercare following joint replacement surgery
CPT/HCPCS: 73502

== ENCOUNTER → 2023-06-15 10:41 | Outpatient (BNVA) | payer MEDICARE, OTHER, SELFPAY | PROVIDERS: PCP Internal Medicine; Referring Provider Internal Medicine | DX: Z47.1 Aftercare following joint replacement surgery (principal); Z96.641 Presence of right artificial hip joint ==

== ENCOUNTER → 2023-08-03 10:15 | Outpatient (BNVA) | payer MEDICARE, OTHER, SELFPAY | PROVIDERS: PCP Internal Medicine; Referring Provider Internal Medicine; Visit Provider Student in an Organized Health Care Education/Training Program | DX: Z47.1 Aftercare following joint replacement surgery (principal); Z96.641 Presence of right artificial hip joint ==

== ENCOUNTER 2023-08-26 14:19 | Outpatient (CLI) | payer MEDICARE, OTHER, SELFPAY ==
--- NOTE | 2023-08-26 14:00 | DI.RAD_ITS ---
Exam(s) XR SHOULDER RT COMPLETE 2+V EXAM: XR SHOULDER RT COMPLETE 2+V CLINICAL HISTORY: BILATERAL SHOULDER PAIN. TECHNIQUE: 2D digital imaging was performed. Five views. COMPARISON: No exams were available for comparison FINDINGS: BONES: No acute fracture is present. No bony destructive lesion is seen. JOINTS: Severe narrowing of the glenohumeral joint, with a mauf-uy-dhtm appearance. There is remodel ing of the glenoid and humeral head, with flattening and prominent periarticular spurring. The AC samson int is not well visualized. SOFT TISSUE: Normal. IMPRESSION: End-stage degenerative changes of the glenohumeral joint. DATA REPOSITORY: RADIATION DOSE DELIVERED:
--- NOTE | 2023-08-26 14:00 | DI.RAD_ITS ---
Exam(s) XR SHOULDER LT COMPLETE 2+V EXAM: XR SHOULDER LT COMPLETE 2+V CLINICAL HISTORY: BILATERAL SHOULDER PAIN. TECHNIQUE: 2D digital imaging was performed. Three views. COMPARISON: CR XR SHOULDER RT COMPLETE 2+V from 08/26/2023 FINDINGS: BONES: No acute fracture is present. No bony destructive lesion is seen. JOINTS: No dislocation present. Severe narrowing of the glenohumeral joint, with a eapp-oh-ewoq appe arance. Subchondral cysts on both sides of the joint. Humeral head normally positioned. Mild spurr ing at the inferior AC joint. SOFT TISSUE: Normal. IMPRESSION: Severe degenerative changes of the glenohumeral joint. DATA REPOSITORY: RADIATION DOSE DELIVERED:
== END 2023-08-26 14:20 | disposition home or self-care (01) ==
LOC: DIORS 14:19
PROVIDERS: PCP Internal Medicine; Referring Provider Internal Medicine; Visit Provider Student in an Organized Health Care Education/Training Program
DX: M19.011 Primary osteoarthritis, right shoulder; M19.012 Primary osteoarthritis, left shoulder
CPT/HCPCS: 99214; 73030

== ENCOUNTER → 2023-09-11 00:26 | Outpatient (CLI) | payer MEDICARE, OTHER, SELFPAY ==
--- NOTE | 2023-09-11 08:30 | DI.CT_ITS ---
Exam(s) CT UPPER EXTREMITY RT WO EXAM: CT UPPER EXTREMITY RT WO CLINICAL HISTORY: SURGICAL PLANNING,OA RT SHOULDER,M19.011. TECHNIQUE: Imaging Protocol: Axial computed tomography images with coronal and sagittal reformatted images were created and reviewed. COMPARISON: CR XR SHOULDER LT COMPLETE 2+V from 08/26/2023 FINDINGS: Bones: There is no evidence of fracture or dislocation. No cellulitic or osteomyelitic changes are identified. No lytic or sclerotic lesions are identified. Joints: Severe degenerative changes of the glenohumeral joint with a iubs-kg-ckam appearance. Promin ent periarticular spurring and multiple subchondral cysts. There is remodeling of the glenoid. The AC joint is unremarkable.. Soft Tissues: Unremarkable. IMPRESSION: End-stage degenerative changes of the glenohumeral joint RADIATION DOSE DELIVERED: 810.12mGy.cm Total DLP 810.12mGy.cm Total DLP DATA REPOSITORY: All CT scans at this facility are submitted to the National Radiology Data Registry (NRDR) Dose Index Registry (DIR) with the [employer] (A[employer]). RADIATION OPTIMIZATION: All CT scans at this facility use at least one of these dose optimization te chniques: automated exposure control; mA and/or kV adjustment per patient size (includes targeted exa ms where dose is matched to clinical indication); or iterative reconstruction.
== END ==
PROVIDERS: PCP Internal Medicine; Visit Provider Student in an Organized Health Care Education/Training Program
DX: M19.011 Primary osteoarthritis, right shoulder (principal)
CPT/HCPCS: 73200

== ENCOUNTER → 2023-09-22 13:34 | Outpatient (BNVA) | payer MEDICARE, OTHER, SELFPAY | PROVIDERS: PCP Internal Medicine; Referring Provider Internal Medicine; Visit Provider Student in an Organized Health Care Education/Training Program | DX: M19.011 Primary osteoarthritis, right shoulder (principal) | CPT/HCPCS: 99214 ==

== ENCOUNTER 2023-10-15 09:39 | Day surgery (SDC) | payer MEDICARE, OTHER, SELFPAY ==
[2023-10-15] VITALS (45 sets, daily range): BP systolic 115–142; BP diastolic 61–83; PULSE 58–68; RESP 11–23; TEMP 36.1–36.6; O2SAT 93–99; BMI 32.8
--- NOTE | 2023-10-15 07:26 | W.PM.DSUDISC ---
Date of service: 10/15/23 Time of Service: 15:00 Discharge Plan Disposition Patient Disposition: Home Condition: Stable Discharge Details Attending Provider: Iker Naranjo Primary Care Provider: Glen Jason Home Meds and New Rx's Prescriptions: New naproxen 250 mg tablet 250 mg PO BID PRNQty: 20 0RF Rx Instructions: take with a meal oxycodone 5 mg tablet 5 - 10 mg PO Q4H MDD 30 mg PRN (Reason: moderate to severe pain) Qty: 18 0RF Continued furosemide [Lasix] 20 mg tablet 10 mg PO DAILY Myrbetriq 50 mg tablet extended release 24 hr 50 mg PO DAILY cetirizine 10 mg tablet 10 mg PO DAILY PRN PreserVision AREDS-2 250-90-40-1 mg capsule 2 tab PO DAILY Eliquis 5 mg tablet 5 mg PO BID acetaminophen 500 mg tablet 1,000 mg PO TID Qty: 90 3RF diltiazem HCl [Tiadylt ER] 180 mg capsule,extended release 24 hr 180 mg PO HS terbinafine HCl 250 mg tablet 250 mg PO DAILY Patient Comments: TAKE ONE TABLET BY MOUTH EVERY DAY betamethasone dipropionate 0.05 % ointment TOPICAL Patient Comments: APPLY A THIN LAYER TOPICALLY TO THE AFFECTED AREA(S) ONCE DAILY FOR 14 DAYS THEN TAKE ONE WEEK OFF, THEN REPEAT Discharge Instructions Additional Instructions: Surgery: Right reverse total shoulder arthroplasty (constrained liner) with biceps tenodesis Activity: For 6 weeks, do not lift anything heavier than a coffee. You should keep your arm at your side in a relatively neutral position at all times except for gentle range of motion exercises, physical therapy, and essential activities. You should use the sling whenever you are out of the house. At home it is best to remove the sling and rest the arm on a pillow at your side or support the operative side with your other hand. A physical therapy prescription will be sent to start in about 3 weeks. STANDARD Reverse TSA Protocol. Prescriptions: Naproxen 250 mg take 1 every 12 hours with a meal as needed for moderate pain (may hold Eliquis while using naproxen) Oxycodone 5 mg take 1-2 every 4-6 hours as needed for severe pain You may use nkkp-vmx-nshrdgk Tylenol (acetaminophen) as needed for mild pain. These pain medications may be taken all at once or in different combinations as needed. Also, recommend Colace (docusate) as a stool softener as surgery and pain medicine cause constipation. You may try ohdd-ofg-zxetrzh diphenhydramine (Benadryl) 25-50 mg nightly as a sleep aid Dressings: Leave dressing in place until follow-up. Keep clean and dry at all times. No showers please. Follow-up: 10-[address] Naranjo You may take off the leg compression stockings this evening at home. You may also leave them on a few days longer if you have a history of leg swelling or edema. Please call the office during business hours with any questions or concerns. Let us know right away if you develop any redness, drainage, fevers, chest pain, or trouble breathing. Do not drink alcohol or drive for at least 24 hours after anesthesia. Stand Alone Forms: Anesthesia Discharge Inst., Anes.Nerve Block Instructions, Sheree Blanco ([facility]) Referrals: Iker Naranjo MD [ [facility] STAFF PHYSICIAN] - 10/27/23 1:15 pm Discharge Orders Discharge Orders: Discharge Order (Routine); Ordered 10/15/23 Ordered By: Homero Torres DS: Diagnosis Discharge Diagnosis (1) Osteoarthritis of right shoulder: Status: Acute
[2023-10-15] MEDS: Lactated Ringers 1,000 ML 30 ML IV (10:20)
--- NOTE | 2023-10-15 10:31 | W.ANESPRE ---
General Info Date of Service Date Performed: 10/15/23 Height: 5 ft 8 in Weight: 97.9 kg Body Mass Index (BMI): 32.8 Surgical Procedure: Operation Date: 10/15/23 10:55 Proposed Procedure Side Surgeon p Shoulder Reverse Total Arthroplasty Right Iker Naranjo MD Meds Allergies and Home Medications Allergies Allergy/AdvReac Type Severity Reaction Status Date / Time lisinopril AdvReac Intermediate cough Verified 10/15/23 10:04 Home Medication ?Medication ?Instructions ?Recorded vit C 250 mg-vit E 90 mg-zinc 40 2 tab PO DAILY 10/31/22 mg-copper 1 wj-jqmago-hqkirx capsule (PreserVision AREDS-2) apixaban 5 mg tablet (Eliquis) 5 mg PO BID 02/17/23 cetirizine 10 mg tablet 10 mg PO DAILY PRN 03/26/23 furosemide 20 mg tablet (Lasix) 10 mg PO DAILY 03/26/23 mirabegron 50 mg tablet,extended 50 mg PO DAILY 03/26/23 release 24 hr (Myrbetriq) acetaminophen 500 mg tablet 1,000 mg (2 x 500 mg) PO TID #90 05/05/23 tabs diltiazem HCl 180 mg capsule,24 180 mg PO HS 05/05/23 hr,extended release (Tiadylt ER) terbinafine HCl 250 mg tablet 250 mg PO DAILY 10/13/23 betamethasone dipropionate 0.05 % applic topical 10/15/23 topical ointment Current Visit Medications: Current Medications Generic Name Dose Route Start Last Admin Trade Name Freq PRN Reason Stop Dose Admin Ringer's Solution 1,000 mls @ 30 mls/hr 10/15/23 06:00 10/15/23 10:20 IV 10/15/23 16:00 30 mls/hr INFUSION DUNCAN Administration Cefazolin Sodium/Dextrose 2 gm in 50 mls @ 100 mls/hr 10/15/23 06:00 Ancef Duplex IVPB 10/15/23 16:00 PREOP DUNCAN Tranexamic Acid/Sodium Chloride 1,000 mg in 100 mls @ 600 mls/hr 10/15/23 06:00 IVPB 10/15/23 16:00 PREOP DUNCAN Cefazolin Sodium/Dextrose 2 gm in 50 mls @ 100 mls/hr 10/15/23 16:00 Ancef Duplex IVPB 10/15/23 16:29 PREOP ONE IV Miscellaneous Supplies 1 each 10/15/23 06:00 Iv Access IV 11/13/23 23:59 DIRECTED DUNCAN Oxycodone HCl 0 mg 10/15/23 07:24 Oxycodone 5 Mg Tab PO 11/14/23 07:23 Q3H PRN PRN Pain Sodium Chloride 0 ml 10/15/23 06:00 Normal Saline Flush 10 Ml Syr IV 11/13/23 23:59 PRN PRN Sodium Chloride 0 ml 10/15/23 06:00 Normal Saline 10 Ml Vial IJ 11/13/23 23:59 DIRECTED PRN Sterile Water 0 ml 10/15/23 06:00 Water,Injection,Sterile 10 Ml Vial IJ 11/13/23 23:59 DIRECTED PRN PFSH Active Problems Active Problems: Problem Status Onset Code Osteoarthritis of left shoulder Acute M19.012 Osteoarthritis of right shoulder Acute M19.011 History of total right hip replacement Acute 05/05/23 Z96.641 Obstructive sleep apnea (adult) (pediatric) Acute G47.33 GRACIELA (obstructive sleep apnea) Chronic G47.33 HTN, goal to be determined Acute I10 Obesity, unspecified Chronic E66.9 Gastro-esophageal reflux disease without esophagitis Acute K21.9 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 Acute I51.7 Benign prostatic hyperplasia without lower urinary tract symptoms Acute N40.0 Mild cognitive impairment, so stated Acute G31.84 Chronic depressive disorder Acute F32.9 Aortic valve sclerosis Acute I35.8 Venous insufficiency (chronic) (peripheral) Acute I87.2 Paroxysmal atrial fibrillation Acute I48.0 Medical History Medical History A-fib Adhesive capsulitis Esophageal reflux Colonic diverticulum PVC (premature ventricular contraction) LVH (left ventricular hypertrophy) Hand dermatitis BPH (benign prostatic hyperplasia) Urinary frequency Hydrocele, right Hammer toe Onychomycosis Irregular heart beats Arthritis of knee, right Actinic keratosis Epigastric abdominal pain Inguinal hernia Cholelithiases Acute nontraumatic kidney injury Venous stasis ulcer Right ear pain Surgical History Surgical History Hx of tonsillectomy H/O cardiac radiofrequency ablation 04/15/21 H/O vasectomy History of open reduction and internal fixation (ORIF) procedure s/p 2 ORIF of patella s/p right TKA Tobacco Smoking/Tobacco Use Status: Never Alcohol Alcohol Intake: current Alcohol intake frequency: holidays/special occasions only Substance Use Substance use: Never Substance use type: does not use Details: alcohol: unknown Vital Signs and Lab Results Vital Signs Most Recent Vital Signs in EMR: Most Recent Vital Signs Temp Pulse Resp BP Pulse Ox 36.6 C 68 16 130/75 98 10/15/23 10:14 10/15/23 10:14 10/15/23 10:14 10/15/23 10:14 10/15/23 10:14 Lab Results Blood Type / Crossmatch: No Data to Display Complete Blood Count: No Data to Display Complete Metabolic Panel: No Data to Display Liver Function Panel: No Data to Display Coagulation Panel: No Data to Display Cardiac Panel: No Data to Display Arterial Blood Gas: No Data to Display Venous Blood Gas: No Data to Display Pancreas Panel: No Data to Display Thyroid Panel: No Data to Display Infectious Disease: No Data to Display Blood Cultures: No Data to Display Toxicology Panel: No Data to Display Imaging and Studies Imaging and Studies Study information below may be from another EMR and interpreted by another provider. Please see original notes in EMR for more complete details. EKG Summary: 2020 Conclusion Sinus rhythm...normal P axis, V-rate 50- 99 Left anterior fascicular block...axis(240,-40), init forces inf Consider anterior infarct...Q >30mS in V2-V5 Baseline wander in lead(s) V1,V3,V4,V5,V6 Other Study Summary:: echo 2020 EF 65%, no significant valve disease, no aortic stenosis Anesthesia Assessment and Plan Anesthesia History Personal History: No History of Anesthesia Complications Family History: No Family History of Anesthesia Complications Exercise Tolerance Exercise Tolerance: Metabolic Equivalents>4 Cardiac & Pulmonary Exam Cardiac Exam: Heart Murmur Present Pulmonary Exam: Clear Bilateral Breath Sounds Implantable Cardiac Device Does patient have a Pacemaker or an ICD?: No Airway Exam Known Difficult Airway: No Mallampati Class: 3 Mouth Opening: Normal (> 3cm) Thyromental Distance: Greater than 3 cm Neck Range of Motion: Full ROM Neck Circumference: Normal Teeth Condition: Loose or Chipped (one chipped right side, nothing loose) ASA Classification ASA Score: ASA 3 Emergency Case?: No NPO Status NPO Status: NPO Clears >2 hours, Solids >8 hours Anesthesia Plan Resuscitation Status: Full Code Anesthesia Technique: General Anesthesia Airway Planned: Endotracheal Tube Pain Management: Surgeon and patient request nerve block Monitors Used: Standard Monitors, Arterial Line (If indicated during surgery) and SedLine
--- NOTE | 2023-10-15 11:45 | W.PM.OP ---
Date of service: 10/15/23 Time of Service: 12:30 Operative Note Operative Note DATE OF PROCEDURE: 10/15/23 PRE-OP DIAGNOSIS: Right: 1. End-stage glenohumeral arthritis 2. Long head of the biceps tendinopathy POST-OP DIAGNOSIS: same PROCEDURE: Right: 1. Reverse total shoulder arthroplasty, CPT # 54449 2. Open biceps tenodesis, CPT # 76084 The hospital administrative assistant was medically required as this procedure involves retraction, protection of neurovascular structures, and manipulation of multiple instruments and implants at the same time, which cannot be done without a skilled hospital administrative assistant. SURGEON: Iker Naranjo DIRECTOR TREASURER: Homero Torres ANESTHESIA TYPE: Local By Surgeon, General LMA/ETT and Primary Nerve Block Refer to Anesthesia Record ESTIMATED BLOOD LOSS: 150 COMPLICATIONS: None Patient was transported to: PACU Implants: [employer] modular glenoid system baseplate 24 mm, 10 degree augment, +2 lateralized [employer] modular glenoid system central post 25 mm [employer] modular glenoid system peripheral locking screws 32 mm inferior, 28 mm superior, 20 mm posterior, 24 mm anterior [employer] modular glenoid system glenosphere 45 +4 mm lateralized [employer] humeral stem 135 degrees size 9 [employer] suture cup size 42 posterior offset [employer] humeral insert size 42 +3mm combo/ 45 constrained Indications: Please see complete medical record for details. Findings: Profound glenohumeral joint arthritis, deformity, and contracture. Poor bone and tissue quality. Diminutive long head biceps tendon still present. Contracted immobile globally thinned rotator cuff. Procedure Description: In the operating room, general anesthesia was induced. The patient was positioned beachchair on the operating room table. All bony prominences were well-padded. Preoperative antibiotics were administered. The shoulder was prepped and draped in the usual sterile fashion for shoulder arthroplasty. The correct patient, procedure, and side of the procedure were all verified prior to incision. The deltopectoral approach was preinjected with 0.25% bupivacaine containing epinephrine and taken to the anterior shoulder. Care was taken to bluntly dissect the interval between the deltoid and pectoralis major muscles and to identify the cephalic vein within its fat stripe. The the vein was mobilized laterally. Subdeltoid space and conjoined tendon were freed of adhesions. The long head of the biceps tendon was identified just lateral to the lesser tuberosity. The uppermost margin of the pectoralis major tendon was released from the proximal humerus. The long head of the biceps tendon was tenodesed in situ using SutureTape in a [id number] fashion securing it superior margin the pectoralis major tendon. The biceps tendon was amputated and followed proximally to identify the rotator interval. The glenohumeral joint was significantly medial with the lesser tuberosity near the coracoid and significant stiffness relating to bony constraints and a relatively immobile rotator cuff. The subscapularis was tenotomized bringing the arm slowly into external rotation taking care working inferiorly. With the arm in internal rotation in the supraspinatus was debrided as well in order to allow exposure, which was significantly challenging given the known profound arthritis, medialization, and contracture. Appropriate coagulation was achieved especially interiorly. The anatomic neck was cut using an oscillating saw with the humeral head bone brought back table in case there was a need for future bone grafting. The proximal humerus was delivered from the wound with adduction and external rotation. The proximal humeral protection plate was used to provisionally confirm suture cup and glenosphere size. A larger suture cup was needed to accommodate the even larger glenosphere, which would remove some more additional proximal humeral bone than usual but there was no real rotator cuff remnant that would be preserved anyway. Reamers were started appropriately posterior to the bicipital groove taking care to maintain in line approach with the humeral canal. Sequential reaming was done from size 5 up to size 8. Next, the broaches were sequentially used to open the proximal humerus starting with a size 5 and going up to size 8 and sunk to the appropriate depth while maintaining approximately 20 degrees retroversion. There was reasonable metaphyseal fit and rotational control of the proximal humerus with this size. The posterior offset guide was used to ream for the suture cup. Attention was then turned to the glenoid and retractors were placed and a circumferential release performed using the long head of the biceps remnant to remove soft tissue about the glenoid rim. Care was taken inferiorly to work on bone only between 5 and 7:00 o'clock and bluntly elevate tissues inferiorly. As much marginal osteophyte and loose body bone was removed as reasonable. The VIP guide was placed on the glenoid and used to confirm placement and trajectory of the central guidepin. The guidepin was inserted and advanced just through the far cortex ensuring adequate central fixation length. The glenoid was prepared according to tight rope walker specifications for a augmented baseplate to accommodate the deformity and central post. The baseplate was impacted onto the glenoid surface. The locking guide was then used to drill and place appropriately lengthed inferior, superior, anterior, and posterior screws. The [id number] reamer was used to confirm adequate peripheral reaming. The glenosphere was applied with the jewel inserter and then impacted to engage the Corona taper. It was then locked with appropriate countersinking of the setscrew. The glenosphere was inspected and found to have good fit, appropriate positioning, and no soft tissue or bony impingement. Attention was then turned back to the proximal humerus. The size 9 broach was then used as the size 8 was felt to be slightly undersized. The size 9 had excellent fit and control the proximal humerus. The suture cup reamer was used again. The humeral trial cup was connected. Trialing was commenced with +3 mm liner. The shoulder was reduced and taken through range of motion and showed excellent stability and good tension on the deltoid and conjoined tension. The trial components were removed from the proximal humerus. The wound was copiously irrigated with normal saline. The the proximal humeral stem and suture cup were assembled and brought over the proximal humerus. A small amount of vancomycin powder was distributed in the proximal humerus. The humeral component and suture cup were impacted into place. They sat at the same place as the last trial. The patient had excellent tension while fully relaxed under anesthesia. The final combo constrained liner was then connected, and range of motion, stability, and tension confirmed. Constrained chosen given relatively devoid soft tissue and rotator cuff. The shoulder was copiously irrigated with Betadine and normal saline. Vancomycin powder was distributed deeply about the shoulder and through subcutaneous tissues. The deltoid had been compressed to the point during retraction and was torn. Coagulated and then suture-ligated. The muscle had some injury in this area. It was reflected back into position. The deltopectoral interval was reapproximated used 2-0 Monocryl subcutaneous tissue was irrigated then closed using 2-0 Monocryl in a buried interrupted fashion. Skin was closed using 3-0 Monocryl in a buried subcuticular fashion. Skin glue was applied to the incision. A silver impregnated bandage was placed over the incision. The extremity was placed into a shoulder immobilizer. The patient awoke from anesthesia without complication and was taken to the recovery room in stable condition.
[2023-10-15] MEDS: ceFAZolin 2 GM/50 ML BAG IVPB (11:59)
[2023-10-15] MEDS: TRANEXAMIC ACID/SOD. CHL. 1,000 MG/100 ML BAG 600 MG IVPB (12:24)
[2023-10-15] MEDS: Bupivacaine 0.25% Pres-Free W/EPI 30 ML VIAL (12:43)
--- NOTE | 2023-10-15 12:43 | W.ANESVAS ---
Arterial Line Placement Date Performed: 10/15/23 Procedure Time: 11:52 Procedure Location: Operating Room Requesting Provider: Giselle Mccullough Timeout Performed: Yes Sedation Given (Indicate Dose Given): No Sedation given Patient Mental Status: Performed under general anesthesia Sterility: Hand Hygiene, Surgical Cap, Surgical Mask, Sterile Gloves and Chlorhexidine Laterality: Left Insertion Site: Radial Arterial Line Catheter: 20G Arrow Arterial Line Procedure: Vessel accessed with catheter over needle, Guidewire placed with ease and Catheter placed without resistance Dressing: Tegaderm Applied, Steristrips Used and Mastisol Used Ultrasound: Sterile probe cover and gel used Ultrasound Image Saved?: Yes Number of Attempts (See previous attempts in note section): 1 Procedure Tolerated: No Complications Procedure Outcome: Successful Performed By: Giselle Mccullough
--- NOTE | 2023-10-15 12:46 | W.ANESNERVE ---
Nerve Block Single Injection Procedure Date and Time Date Performed: 10/15/23 Procedure Start: 11:28 Location Where Procedure Performed Procedure Location: Day Surgery Unit Reason Performed: Postoperative Analgesia Requesting Provider: Iker Naranjo Timeout Performed Timeout Performed: Yes Monitoring Used ECG, Blood Pressure, SpO2 and See EMR for corresponding vital signs Sterility Sterility: Hand Hygiene, Surgical Cap, Surgical Mask, Sterile Gloves and Chlorhexidine Sedation Given During Procedure Sedation Given (Indicate Dose Given): Versed IV Dose:: 2mg Patient Mental Status Patient Mental Status: Awake Nerve Block 1st Nerve Block: Laterality: Right Block Type: Supraclavicular (Low Interscalene) Ultrasound Image Saved?: Yes Needle / Catheter Used: 80mm SonoPlex II Local Anesthetic Bolus (Indicate Dose Given): Lidocaine used for local infiltration of skin, Injected in 3-5ml increments after negative blood aspiration, Bupivacaine 0.5% Dose:: 10mL and Exparel Dose:: 10mL Additives (Indicate Dose Given): None Ultrasound: Sterile probe cover and gel used Nerve Stimulator: Supplement to Ultrasound use and No twitch or parasthesia noted < 0.5 mA Paresthesia: None Procedure Tolerated: No Complications Procedure Outcome: Successful Performed By: Giselle Mccullough
--- NOTE | 2023-10-15 15:44 | W.ANESPOSTOP ---
Postoperative Evaluation Date, Time and Location Date Performed: 10/15/23 Time Performed: 15:44 Patient Location: PACU Vital Signs Most Recent Imported Vital Signs: Most Recent Vital Signs Temp Pulse Resp BP Pulse Ox 36.4 C L 66 19 115/61 96 10/15/23 15:19 10/15/23 15:25 10/15/23 15:26 10/15/23 15:25 10/15/23 15:26 Pain Score Most Recent Pain Score: Most Recent Pain Score Pain Level 0 10/15/23 10:14 Assessment Mental Status: Awake (Alert & Oriented to Patient Baseline) Airway and Respiratory Function: Patent airway with normal (patient baseline) respiratory exam Cardiovascular Function: Hemodynamically Stable Hydration Status: Adequately Hydrated Nausea & Vomiting: No Nausea or Vomiting Pain: Pt. Denies Any Pain Peripheral Nerve Block: Regional nerve block not resolved at time of post operative discharge
--- NOTE | 2023-10-15 15:50 | DI.RAD_ITS ---
Exam(s) XR SHOULDER RT COMPLETE 2+V EXAM: XR SHOULDER RT COMPLETE 2+V CLINICAL HISTORY: Shoulder Arthritis. TECHNIQUE: 2D digital imaging was performed. COMPARISON: CR XR SHOULDER LT COMPLETE 2+V from 08/26/2023 FINDINGS: TWO POSTOP VIEWS Satisfactory position alignment of the components of the newly placed reverse prosthesis. No fractur e or loosening evident. IMPRESSION: Satisfactory postop appearance DATA REPOSITORY: RADIATION DOSE DELIVERED:
[2023-10-15] MEDS: ceFAZolin 1 GM/50 ML BAG 100 GM (16:10)
[2023-10-15] MEDS: Lactobacillus Acidophilus CAP 1 CAP PO (17:20)
== END 2023-10-15 18:18 | disposition home or self-care (01) ==
LOC: SUR 09:40
PROVIDERS: PCP Internal Medicine; Visit Provider Student in an Organized Health Care Education/Training Program
PROC: (CPT 23472; principal; 2023-10-15 10:45)
DX: M19.011 Primary osteoarthritis, right shoulder (principal); I10 Essential (primary) hypertension; G47.33 Obstructive sleep apnea (adult) (pediatric); M75.21 Bicipital tendinitis, right shoulder
CPT/HCPCS: 23472; C1713; 76942; 73030; C9290; J0665; J0690; J1100; J1596; J2001; J2250; J2371; J2405; J2704

== ENCOUNTER 2023-10-27 15:51 | Outpatient (CLI) | payer MEDICARE, OTHER, SELFPAY ==
--- NOTE | 2023-10-27 13:15 | DI.RAD_ITS ---
Exam(s) XR SHOULDER RT COMPLETE 2+V EXAM: XR SHOULDER RT COMPLETE 2+V CLINICAL HISTORY: FIRST POSTOP RIGHT RTSA. TECHNIQUE: 2D digital imaging was performed. Five views. COMPARISON: CR XR SHOULDER RT COMPLETE 2+V from 10/15/2023 FINDINGS: BONES: Stable alignment of reverse shoulder prosthesis. No suspicious bony lucencies. SOFT TISSUE: Small amount of residual air in the soft tissues. IMPRESSION: Stable appearance of shoulder prosthesis. DATA REPOSITORY: RADIATION DOSE DELIVERED:
== END 2023-10-27 15:52 | disposition home or self-care (01) ==
LOC: DIORS 15:51
PROVIDERS: PCP Internal Medicine; Visit Provider Student in an Organized Health Care Education/Training Program
DX: Z47.1 Aftercare following joint replacement surgery; Z96.611 Presence of right artificial shoulder joint
CPT/HCPCS: 73030

== ENCOUNTER → 2023-12-08 13:08 | Outpatient (BNVA) | payer MEDICARE, OTHER, SELFPAY | PROVIDERS: PCP Internal Medicine; Referring Provider Internal Medicine; Visit Provider Student in an Organized Health Care Education/Training Program | DX: Z47.1 Aftercare following joint replacement surgery (principal); Z96.611 Presence of right artificial shoulder joint | CPT/HCPCS: 99024 ==

== ENCOUNTER 2024-02-02 15:29 | Outpatient (CLI) | payer MEDICARE, OTHER, SELFPAY ==
--- NOTE | 2024-02-02 13:30 | DI.RAD_ITS ---
Exam(s) XR SHOULDER RT COMPLETE 2+V EXAM: XR SHOULDER RT COMPLETE 2+V CLINICAL HISTORY: F/U RIGHT RTSA. TECHNIQUE: 2D digital imaging was performed. Three images were obtained. Grashey and Y views were o btained. COMPARISON: CR XR SHOULDER RT COMPLETE 2+V from 10/27/2023 FINDINGS: BONES: There are stable post operative changes of a right reverse total shoulder arthroplasty present . No fracture or dislocation. JOINTS: The orthopedic hardware is in good position. No evidence of hardware loosening. SOFT TISSUE: Normal. IMPRESSION: Stable right reversed total shoulder arthroplasty. DATA REPOSITORY: RADIATION DOSE DELIVERED:
== END 2024-02-02 15:30 | disposition home or self-care (01) ==
LOC: DIORS 15:29
PROVIDERS: PCP Internal Medicine; Referring Provider Internal Medicine; Visit Provider Student in an Organized Health Care Education/Training Program
DX: Z96.611 Presence of right artificial shoulder joint (principal); Z47.1 Aftercare following joint replacement surgery; M79.672 Pain in left foot
CPT/HCPCS: 99214; 73030

== ENCOUNTER 2024-04-07 13:28 | Outpatient (REF) | payer MEDICARE, OTHER, SELFPAY ==
[2024-04-07 19:05] LABS: HCT 42.1 % (40.0-50.0); HGB 14.2 g/dL (13.5-17.5); MCH 31.1 pg (27.0-33.0); MCHC 33.7 % (32.0-36.0); MCV 92 fL (80-95); MPV 9.5 fL (8.0-11.0); Platelet Count 194 10^3/uL (130-400); RBC 4.56 10^6/uL (4.36-5.78); RDW 12.4 % (11.8-14.1); RDW-SD 42.1 fL; WBC 6.35 10^3/uL (4.4-10.8)
[2024-04-07 19:40] LABS: ALT 16 U/L (16-63); AST 27 U/L (15-37); Albumin 3.9 g/dL (3.4-5.0); Alkaline Phosphatase 87 U/L (46-116); Anion Gap 6.3 mmol/L (3-11); BUN 26 mg/dL (7-18); Bilirubin, Total 0.46 mg/dL (0.2-1.0); CO2 26.7 mmol/L (21.0-32.0); Calcium 9.3 mg/dL (8.5-10.1); Calculated LDL 83 mg/dL (<100); Chloride 105 mmol/L (98-107); Cholesterol 161 mg/dL (<200); Estimated GFR 79.47 (mL/min/1.73m2); Glucose 87 mg/dL (74-106); HDL Cholesterol 72 mg/dL (40-60); Potassium 4.2 mmol/L (3.5-5.1); Sodium 138 mmol/L (136-145); TSH 1.65 uIU/mL (0.36-3.74); Total Protein 7.5 g/dL (6.4-8.2); Triglyceride 33 mg/dL (<150); Vitamin B12 461 pg/mL (193-986)
== END 2024-04-07 13:29 | disposition home or self-care (01) ==
LOC: NCHCN 13:28
PROVIDERS: PCP Internal Medicine; Visit Provider Internal Medicine
DX: E78.5 Hyperlipidemia, unspecified (principal); I48.0 Paroxysmal atrial fibrillation; R41.3 Other amnesia
CPT/HCPCS: 80053; 80061; 85027; 82607; 84443

== ENCOUNTER 2024-04-12 02:24 | Outpatient (CLI) | payer MEDICARE, OTHER, SELFPAY ==
--- NOTE | 2024-04-12 06:30 | DI.RAD_ITS ---
Exam(s) XR FOOT LT COMPLETE EXAM: XR FOOT LT COMPLETE CLINICAL HISTORY: Left foot pain,[id number]. TECHNIQUE: 2D digital imaging was performed. COMPARISON: No exams were available for comparison FINDINGS: 3 views No evidence of acute fracture or diastasis of the Lisfranc joint. Degenerative changes are noted in the great toe metatarsophalangeal joint. There is pes planus. Moderate size inferior calcaneal spur noted. On the lateral view there is a suggestion of possible element of tarsal coalition. IMPRESSION: Pes planus. 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 DATA REPOSITORY: RADIATION DOSE DELIVERED:
== END 2024-04-12 02:44 ==
LOC: DI 02:24
PROVIDERS: PCP Internal Medicine; Visit Provider Podiatrist
DX: M79.672 Pain in left foot; M20.41 Other hammer toe(s) (acquired), right foot; M20.42 Other hammer toe(s) (acquired), left foot; L84 Corns and callosities; I87.2 Venous insufficiency (chronic) (peripheral)
CPT/HCPCS: 11056; 99213; 99214; 73630

== ENCOUNTER → 2024-05-11 09:31 | Outpatient (BNVA) | payer MEDICARE, OTHER, SELFPAY | PROVIDERS: PCP Internal Medicine; Referring Provider Internal Medicine; Visit Provider Podiatrist | DX: M79.674 Pain in right toe(s) (principal); M79.675 Pain in left toe(s); M20.41 Other hammer toe(s) (acquired), right foot; M20.42 Other hammer toe(s) (acquired), left foot; L84 Corns and callosities; I87.2 Venous insufficiency (chronic) (peripheral) | CPT/HCPCS: 99213 ==

== ENCOUNTER 2024-05-27 09:12 | Outpatient (CLI) | payer MEDICARE, OTHER, SELFPAY ==
--- NOTE | 2024-05-27 08:38 | DI.RAD_ITS ---
Exam(s) XR HIP RT COMPLETE AP PELVIS EXAM: XR HIP RT COMPLETE AP PELVIS CLINICAL HISTORY: ANNUAL F/U R PILY. TECHNIQUE: 2D digital imaging was performed. Three views. COMPARISON: CR XR HIP RT COMPLETE AP PELVIS from 05/18/2023 FINDINGS: BONES: No acute fracture is present. No bony destructive lesion is seen. JOINTS: Stable alignment of right hip prosthesis. The left hip joint space is maintained. There is mild periarticular spurring. The SI joints and pubic symphysis show mild degenerative changes.. SOFT TISSUE: Normal. IMPRESSION: Stable appearance of right hip prosthesis. Mild degenerative changes of the left hip. DATA REPOSITORY: RADIATION DOSE DELIVERED:
== END 2024-05-27 09:13 | disposition home or self-care (01) ==
LOC: DIORS 09:13
PROVIDERS: PCP Internal Medicine; Referring Provider Internal Medicine; Visit Provider Physician Assistant
DX: Z47.1 Aftercare following joint replacement surgery (principal); M76.32 Iliotibial band syndrome, left leg; Z96.641 Presence of right artificial hip joint
CPT/HCPCS: 99214; 73502

== ENCOUNTER → 2024-09-14 09:03 | Outpatient (BNVA) | payer MEDICARE, OTHER, SELFPAY | PROVIDERS: PCP Internal Medicine; Referring Provider Internal Medicine; Visit Provider Podiatrist | DX: M79.671 Pain in right foot (principal); M79.672 Pain in left foot; L84 Corns and callosities; I87.2 Venous insufficiency (chronic) (peripheral); M21.42 Flat foot [pes planus] (acquired), left foot; M21.41 Flat foot [pes planus] (acquired), right foot; M20.41 Other hammer toe(s) (acquired), right foot; M20.42 Other hammer toe(s) (acquired), left foot | CPT/HCPCS: 99213 ==

== ENCOUNTER 2024-10-18 14:14 | Outpatient (CLI) | payer MEDICARE, OTHER, SELFPAY ==
--- NOTE | 2024-10-18 13:00 | DI.RAD_ITS ---
Exam(s) XR SHOULDER RT COMPLETE 2+V EXAM: XR SHOULDER RT COMPLETE 2+V CLINICAL HISTORY: F/U RIGHT RTSA. TECHNIQUE: 2D digital imaging was performed. Three views. COMPARISON: CR XR SHOULDER RT COMPLETE 2+V from 02/02/2024 FINDINGS: BONES: No acute fracture is present. No bony destructive lesion is seen. JOINTS: No dislocation present. Stable alignment reverse shoulder prosthesis. SOFT TISSUE: Increasing heterotopic ossification seen posteriorly. IMPRESSION: Stable appearance of reverse shoulder prosthesis. DATA REPOSITORY: RADIATION DOSE DELIVERED:
== END 2024-10-18 14:15 | disposition home or self-care (01) ==
LOC: DIORS 14:23
PROVIDERS: PCP Internal Medicine; Visit Provider Student in an Organized Health Care Education/Training Program
DX: Z47.1 Aftercare following joint replacement surgery (principal); Z96.611 Presence of right artificial shoulder joint
CPT/HCPCS: 99213; 73030

== ENCOUNTER → 2024-12-14 09:21 | Outpatient (BNVA) | payer MEDICARE, OTHER, SELFPAY | PROVIDERS: PCP Internal Medicine; Referring Provider Internal Medicine; Visit Provider Podiatrist | DX: M20.41 Other hammer toe(s) (acquired), right foot (principal); M20.42 Other hammer toe(s) (acquired), left foot; L84 Corns and callosities; I87.2 Venous insufficiency (chronic) (peripheral); M79.671 Pain in right foot; M79.672 Pain in left foot; M21.41 Flat foot [pes planus] (acquired), right foot; M21.42 Flat foot [pes planus] (acquired), left foot | CPT/HCPCS: 99213 ==